=== PATIENT | male | born 1950 ===

== ENCOUNTER 2018-01-28 08:28 | Outpatient (CLI) | payer OTHER ==
[~2018-01-28 08:28] MED LIST: ACETAMINOOPHEN-1 TAB PO; AMILODIPINE; CIPROFLOXACIN750 MG PO; CLONAZEPAM1 MG PO; COZAAR25 MG PO; DOCUSATE SODIU100 MG PO; GABAPENTIN800 MG PO; HYDROCHLOROTHIA25 MG PO; LISINOPRIL40 MG PO; METHYLPRED4 MG/DOSE- PO; TAMS0.4C PO; xalatan
== END 2018-01-28 08:37 | disposition home or self-care (01) ==
LOC: RAD 08:28
DX: M51.36 Other intervertebral disc degeneration, lumbar region (principal); Z98.1 Arthrodesis status